=== PATIENT | male | born 1970 | race Two or more races ===

== ENCOUNTER 2024-04-19 21:34 | Emergency (ER) | payer OTHER ==
[~2024-04-19] VITALS: Ht 162.6 cm; Wt 82.6 kg
[2024-04-19 22:19] LABS: *BILIRUBIN,URIN NEGATIVE (NEGATIVE); *CLARITY,URINE CLEAR (CLEAR); *COLOR,URINE YELLOW (YELLOW); *KETONES,URINE NEGATIVE (NEGATIVE); *PROTEIN,URINE NEGATIVE (NEGATIVE); *UROBILINOGEN,URINE 0.2 E.U./dl (NORMAL); LEUKOCYTE ESTERASE ,URINE NEGATIVE (NEGATIVE); NITRITE, URINE POSITIVE (NEGATIVE); UGLUCOSE NEGATIVE (NEGATIVE)
[2024-04-19 22:21] LABS: *BLOOD, URINE TRACE (NEGATIVE)
[2024-04-19 22:47] LABS: BACTERIA,URINE FEW /HPF (NONE SEEN); RBC,URINE 0-3 /HPF (0-3); SQUAMOUS EPITHELIAL CELL,UR NONE SEEN /HPF (NONE SEEN); WBC,URINE 0-3 /HPF (0-3)
[2024-04-19] MEDS ORDERED: LEVO500T90 PO (23:02)
[2024-04-19] MEDS ORDERED: levoFLOXacin 500 MG TABLET ONE (23:04)
[2024-04-19] MEDS: levoFLOXacin 500 MG TABLET PO ONE (23:06)
[2024-04-20 00:07] VITALS: BP 150/95; O2SAT 99
== END 2024-04-20 00:08 | disposition home or self-care (01) ==
LOC: ER 21:34
DX: R30.0 Dysuria (principal); Z90.49 Acquired absence of other specified parts of digestive tract
CPT/HCPCS: 87086; A4606; A4663